=== PATIENT | female | born 1960 | race Two or more races ===

== ENCOUNTER 2017-10-31 07:41 | Day surgery (SDC) | payer BC, SELFPAY ==
[2017-10-31] VITALS (9 sets, daily range): BP systolic 98–124; BP diastolic 57–75
[~2017-10-31] VITALS: Ht 165.1 cm; Wt 72.6 kg
[~2017-10-31 07:41] MED LIST: CRESTOR10 M2 ORAL
[2017-10-31] MEDS ORDERED: Propofol 200mg/20ml IV ONE (08:00)
[2017-10-31] MEDS ORDERED: Midazolam 2mg/2ml Inj ONE (08:00)
[2017-10-31] MEDS ORDERED: fentaNYL 100 mcg/2 mL IV ONE (08:00)
[2017-10-31] MEDS ORDERED: LR 1000ml ONE (08:00)
[2017-10-31] MEDS ORDERED: COQ1050 MG PO (08:29)
[2017-10-31] MEDS ORDERED: MULTIVITAMINS1 EA14 PO (08:29)
[2017-10-31] MEDS ORDERED: VITAMIN D1000 UNI1 ORAL (08:30)
--- NOTE | 2017-10-31 08:53 | Short Stay Surgery H&P ---
History of Present Illness History of Present Illness Chief Complaint screening colon HPI Ilene Lafleur is a 57 year old female who was admitted on for Colon Screening Patient History Allergies: Coded Allergies: LATEX (Verified Allergy, Unknown, 10/31/17) cannot remember reaction PAST MEDICAL HISTORY: Past Surgeries: Social History: Medication History Scheduled Cholecalciferol (Vitamin D3)* (Vitamin D*), 1,000 UNIT ORAL DAILY, (Reported) Multivitamin (Multivitamins), 1 EACH PO DAILY, (Reported) Rosuvastatin Calcium* (Crestor*), 5 MG ORAL DAILY, (Reported) Ubidecarenone (Coq10), 50 MG PO DAILY, (Reported) Review of Systems Cardiovascular: Reports: no symptoms Respiratory: Reports: no symptoms Skeletal: Reports: no symptoms Gastrointestinal: Reports: no symptoms Genitourinary: Reports: no symptoms Neurologic: Reports: no symptoms Endocrine: Reports: no symptoms Hematologic: Reports: no symptoms Physical Exam Vital Signs Last Vital Signs Date Time Temp Pulse Resp B/P (MAP) Pulse Ox O2 Delivery O2 Flow Rate FiO2 10/31/17 08:33 97.3 65 17 114/75 100 Room Air Skin: normal HENT: normal Heart: normal Lungs: normal Abdomen: normal Extremities: normal Genitourinary: normal Plan Plan of Care Colonoscopy Preop Interventions None Summary of Findings See the report Final Diagnosis: Attestation Are the patient's medical conditions optimized for surgery? Attestation Response: yes TAB HAWKINS Oct 31, 2017 08:53
--- NOTE | 2017-10-31 08:55 | Pre-Procedure Note/Attestation ---
Pre-Procedure Note/Attestation Complete Prior to Procedure Planned Procedure: left Procedure Narrative: Endoscopic examiantion of the lower GI tract to R/O polyp along upper GI endoscopy Indications for Procedure Pre-Operative Diagnosis: R/O colon CA/polyps and peptic ulcer Attestation I attest that I discussed the nature of the procedure; its benefits; risks and complications; and alternatives (and the risks and benefits of such alternatives ), prior to the procedure, with the patient (or the patient's legal farm loan representative). I attest that, if there was a reasonable possibility of needing a blood transfusion, the patient (or the patient's legal farm loan representative) was given the [place] [facility] standardized written summary, pursuant to the Efrain Ekaterina Blood Safety Act ([place] Health and Safety Code # 1645, as amended). I attest that I re-evaluated the patient just prior to the surgery and that there has been no change in the patient's H&P, except as documented below: SHRUTHI,SAID Oct 31, 2017 08:55
[2017-10-31] MEDS ORDERED: LR 1000ml 1,000 ML IVLG SCH (09:19)
--- NOTE | 2017-10-31 09:19 | Anethesia Preoperative Eval ---
Anesthesia Pre-op PMH/ROS General Date of Evaluation: Oct 31, 2017 Time of Evaluation: 08:55 Anesthesiologist: Daxa ASA Score: ASA 2 Mallampati Score Class I : Soft palate, uvula, fauces, pillars visible Class II: Soft palate, uvula, fauces visible Class III: Soft palate, base of uvula visible Class IV: Only hard plate visible Mallampati Classification: Class II Surgeon: Katie Diagnosis: Abdominal pain Surgical Procedure: egd Colonoscopy Anesthesia History: none Family History: no anesthesia problems Allergies: Coded Allergies: LATEX (Verified Allergy, Unknown, 10/31/17) cannot remember reaction Medications: see eMAR Past Medical History Cardiovascular: Denies: HTN, CAD, [place], valve dz, arrhythmia, other Pulmonary: Denies: asthma, COPD, ABDULAZIZ, other Gastrointestinal/Genitourinary: Reports: GERD, Denies: CRI, ESRD, other Neurologic/Psychiatric: Denies: dementia, CVA, depression/anxiety, TIA, other Endocrine: Denies: DM, hypothyroidism, steroids, other HEENT: Denies: cataract (L), cataract (R), glaucoma, [place] (L), [place] (R), other Hematology/Immune: Denies: anemia, DVT, bleeding disorder, other Musculoskeletal/Integumentary: Denies: OA, RA, DJD, DDD, edema, other PMH Narrative: as above PSxH Narrative: none Anesthesia Pre-op Phys. Exam Physician Exam Last Vital Signs Date Time Temp Pulse Resp B/P (MAP) Pulse Ox O2 Delivery O2 Flow Rate FiO2 10/31/17 08:33 97.3 65 17 114/75 100 Room Air Constitutional: NAD Neurologic: CN 2-12 intact Cardiovascular: RRR, no M/R/G Airway Exam Mallampati Score: Class II MO: full Neck: flexible ROM: full Teeth: intact Dentures: no upper, no lower Anesthesia Pre-op A/P Risk Assessment & Plan Assessment: ASA2 Plan: MAC Status Change Before Surgery: BOO Myrick M.D. Oct 31, 2017 09:19
--- NOTE | 2017-10-31 09:28 | Immediate Post-Op Evaluation ---
Immediate Post-Op Evalulation Immediate Post-Op Evalulation Procedure: EGD Colonoscopy Date of Evaluation: Oct 31, 2017 Time of Evaluation: 09:50 IV Fluids: 600 Blood Products: none Estimated Blood Loss: none Urinary Output: none Blood Pressure Systolic: 104 Blood Pressure Diastolic: 56 Pulse Rate: 64 Respiratory Rate: 20 O2 Sat by Pulse Oximetry: 99 Temperature (Fahrenheit): 97.7 Pain Score (1-10): 2 Nausea: No Vomiting: No Complications none Patient Status: awake, patent, none Hydration Status: adequate BOO THOMAS M.D. Oct 31, 2017 09:28
[2017-10-31] MEDS ORDERED: fentaNYL 100 mcg/2 mL IV PRN (09:30)
--- NOTE | 2017-10-31 09:47 | Endoscopy Procedure Note ---
Endoscopy Procedure Note Indication for Procedure: Screening colon/esophageal spasm Procedures Performed: EGD - Numerous hyperplastic polyps found in the stomach consistent with gastric polyposis. Most of the removed by cold snare and gastric biopsy also done. there was increased bile in the stomach. Patient needs to have follow up with another GI endoscopy in one year. Polyps looked benign., colonoscopy - Signficantly difficult procedure due to high redunancy and toroisity of the colon. Mild diverticulosis of the left colon noted, otherwise normal study upto the base of cecum. Specimen: yes Pt Tolerated Procedure Well: Yes Estimated Blood Loss: none Anesthesiologist: Dr. Mittal Anesthesia: moderate sedation Medication Given: see anesthesia record Implant(s) used?: No 50 yrs or older w/o bx or poly: Yes 10yrs. F/U not recommended: Yes If not recommended, why?: 10 yrs. F/U needed: Yes Med reason:<3 yrs.: System Reason:<3 yrs.: Last colonoscopy >= to 3yrs: Yes TAB HAWKINS Oct 31, 2017 09:47
--- NOTE | 2017-10-31 09:48 | Discharge Instructions ---
Discharge Instructions Discharge Instructions Follow up with: See the docotor in office after two weeks For Congestive Heart Failure Reminder Report to your physician any weight gain of 5 pounds or more in one week. TAB HAWKINS Oct 31, 2017 09:48
--- NOTE | 2017-10-31 12:27 | 48 Hour Post Anesthesia Eval ---
Post Anesthesia Evaluation Procedure: EGD Colonoscopy Date of Evaluation: Oct 31, 2017 Time of Evaluation: 12:26 Blood Pressure Systolic: 124 0: 75 Pulse Rate: 68 Respiratory Rate: 20 Temperature (Fahrenheit): 97.6 O2 Sat by Pulse Oximetry: 98 Airway: patent Nausea: No Vomiting: No Pain Intensity: 1 Hydration Status: adequate Cardiopulmonary Status: stable Mental Status/LOC: patient returned to baseline Follow-up Care/Observations: n/a Post-Anesthesia Complications: none Follow-up care needed: ready to discharge BOO THOMAS M.D. Oct 31, 2017 12:27
--- NOTE | 2017-10-31 21:47 | Procedure Note ---
DATE OF PROCEDURE: 10/31/2017 SURGEON: Andriy Smith M.D. PROCEDURE: Esophagogastroduodenoscopy with multiple gastric polypectomy and biopsy. PREOPERATIVE DIAGNOSES: History of esophageal spasm, gastroesophageal reflux disease. POSTOPERATIVE DIAGNOSIS: Significant numbers of hyperplastic polypoid lesions found in the body of the stomach consistent with gastric polyposis and most of them were removed by cold snare and sent to the pathology laboratory. Also, gastric biopsy was done. There was evidence of increased bile in the stomach. The patient was suggested to have another upper GI endoscopy for further evaluation in 1 year. Multiple irrigation with 11/999 solution of epinephrine was also used and there was no active bleeding post polypectomy. MEDICATION USED: Per Dr. Mittal, anesthesiologist. INSTRUMENT: GIF Olympus upper GI video endoscope. DESCRIPTION OF PROCEDURE: The patient after arriving in endoscopy unit, was told about risks and benefits of the procedure, which she accepted and signed informed consent. She was then put on the left lateral decubitus position, and after adequate IV sedation, the scope was gently passed through the cricopharyngeal area and was lodged into the upper esophagus and gradually advanced towards the gastroesophageal junction. The entire length of the esophagus looked normal and no evidence of ulceration, tumor, polyps, stricture, etc., was found. GE junction looked also normal without any evidence of Reyes's or hiatal hernia. At this time, the scope was advanced into the stomach. Gastric cavity was distended with insufflation of air. Immediately, significant numbers of small 3-4 mm polypoid lesions consistent with hyperplastic polyps were seen located over mostly greater curvature, posterior wall of the stomach. This was consistent with diagnosis of gastric polyposis. At this point, significant numbers of these polyps were removed with the usage of cold snare and sent to pathology laboratory as well as biopsy was taken from gastric body. The area of the polypectomy was irrigated with epinephrine solution. Some small numbers of her polyps were left in the stomach as there was concern about the increasing anesthesia and the chance of bleeding, and certainly the patient needs to have another followup within 1 year to further evaluate the gastric polyposis condition and remove further polyps if needed. The rest of the stomach revealed normal finding except some increasing bile in the fundus of the stomach. At this point, the scope was passed through the pylorus. First and second portion of duodenum were found to be completely normal. Finally, the scope was pulled out. The procedure was terminated. The patient tolerated the procedure well. Said Delaney Smith DR: MARGARET JOB#: [id number] CC:
--- NOTE | 2017-10-31 21:47 | Operative Note - Dictated ---
DATE OF OPERATION: 10/31/2017 SURGEON: Andriy Smith M.D. PROCEDURE: Total screening colonoscopy. PREOPERATIVE DIAGNOSIS: Screening colonoscopy. POSTOPERATIVE DIAGNOSIS: Mild diverticulosis of the left colon. Otherwise, complete normal total colonoscopy. MEDICATION USED: Per Dr. Mittal. INSTRUMENT: GIF Olympus video colonoscope. DESCRIPTION OF PROCEDURE: The patient, at this time, was examined for first time screening colonoscopy. She was told about risks and benefits of the procedure, which she accepted and signed informed consent. She was then put on the left lateral decubitus position, and after adequate IV sedation, the scope was gently passed through the anorectal area and careful examination of this section including the performance of retroflexion maneuver revealed no abnormalities. At this point, the scope was gradually advanced towards significantly twisted left colon, which took significant amount of time to go through revealing mild diverticulosis of the left colon. Otherwise, there was no any other abnormalities such as polyps, tumors, inflammatory process, ulceration, etc. Finally with maneuvers, the scope reached towards the splenic flexure. From there, it was guided into the transverse colon, hepatic flexure, and guided into the right colon all the way to the base of the cecum. As I mentioned, the colon was highly redundant. However, there was no any other pathology found. The colon cleanup was adequate. At this point, upon reaching to the base of the cecum, within 7 minutes the scope was gradually pulled out and there was no other findings except what is stated earlier. The patient tolerated the procedure well and left the endoscopy room in a good condition. Andriy Smith M.D. DR: TRISTAN JOB#: [id number] CC:
== END 2017-10-31 11:15 | disposition home or self-care (01) ==
LOC: GAS 07:41
DX: Z12.11 Encounter for screening for malignant neoplasm of colon (principal); K57.30 Diverticulosis of large intestine without perforation or abscess without bleeding; K21.9 Gastro-esophageal reflux disease without esophagitis; Z91.040 Latex allergy status
CPT/HCPCS: 43239; 45378; J0171; J2250; J2704; J3010; J7120; 94003; 94150